=== PATIENT | female | born 1975 | race African-American/Black ===

== ENCOUNTER 2020-02-19 17:45 | Emergency (ER) | payer BC ==
[~2020-02-19] VITALS: Ht 177.8 cm; Wt 107.0 kg
[2020-02-19 18:04] VITALS: Ht 177.8 cm; Wt 107.0 kg
[2020-02-19 19:52] VITALS: BP 130/66
== END 2020-02-19 19:52 | disposition home or self-care (01) ==
LOC: ED 17:45
DX: M17.12 Unilateral primary osteoarthritis, left knee (principal); E11.9 Type 2 diabetes mellitus without complications
CPT/HCPCS: J1885